=== PATIENT | male | born 1995 | race Hispanic/Latino ===

== ENCOUNTER 2025-02-23 19:52 | Inpatient (IN) | payer SELFPAY ==
[~2025-02-23] VITALS: Ht 172.7 cm; Wt 90.3 kg
[2025-02-23 20:00] VITALS: BP 110/80; PULSE 80; RESP 18; TEMP 98.4; O2SAT 100
[2025-02-23] MEDS: SODIUM CHLORIDE 0.9% 1000ML 1,000 ML IV SCH (20:27)
[2025-02-23] MEDS: DILTIAZEM HCL 5 MG/ML 5 ML VIAL IV ONE (20:27)
[2025-02-23 21:33] VITALS: PULSE 60; RESP 16; TEMP 98.3
[2025-02-23 23:09] VITALS: BP 110/80; PULSE 80; RESP 18; TEMP 98.4; O2SAT 100
[2025-02-23] MEDS: METOPROLOL SUCCINATE 25 MG TAB XL PO ONE (23:34)
[2025-02-23] MEDS: ENOXAPARIN INJ 80 MG/0.8 ML SYR SC STA (23:34)
[2025-02-23] MEDS: METOPROLOL SUCCINATE 25 MG TAB XL ONE (23:35)
[2025-02-23] MEDS: ENOXAPARIN INJ 80 MG/0.8 ML SYR SC ONE (23:36)
[2025-02-23 23:39] VITALS: BP_SYST 110; BP_SYST 141; BP_DIAS 71; BP_DIAS 80; PULSE 80; RESP 18; TEMP 98.4; O2SAT 100
[2025-02-24 01:21] VITALS: PULSE 81; RESP 16; O2SAT 98
[2025-02-24 03:35] VITALS: BP 121/64; PULSE 72; RESP 18; TEMP 97.6; O2SAT 100
[2025-02-24 05:12] LABS: BASOPHILS % 0.9 % (0.0-1.0); EOSINOPHILS % 3.0 % (0.0-6.0); LYMPHOCYTES % 36.3 % (18.0-39.1); MONOCYTES % 11.9 % (4.4-11.3); NEUTROPHILS % 47.6 % (38.7-80.0); RED CELL DISTRIBUTION WIDTH 12.5 % (11.7-14.4)
[2025-02-24 08:00] VITALS: BP 110/62; PULSE 60; RESP 19; TEMP 97.9; O2SAT 100
[2025-02-24 09:00] VITALS: BP 110/62; PULSE 60; RESP 19; TEMP 97.9; O2SAT 100
[2025-02-24 09:10] LABS: EST GLOMERULAR FILTRATION RATE 96.0 ML/MIN (>=60)
[2025-02-24 12:00] VITALS: BP 116/66; PULSE 70; RESP 18; TEMP 98; O2SAT 100
== END 2025-02-24 13:25 | disposition home or self-care (01) | DRG 310 ==
LOC: FSED 19:59 → ERHOLD 20:45 → MED/SURG 23:07
PROVIDERS: ADMIT Internal Medicine; ATTEND Internal Medicine
DX: I48.91 Unspecified atrial fibrillation (principal); F12.90 Cannabis use, unspecified, uncomplicated; F10.90 Alcohol use, unspecified, uncomplicated; Z88.0 Allergy status to penicillin; Z90.5 Acquired absence of kidney
CPT/HCPCS: 36415; 80053; 82550; 83880; 84443; 84484; 85025; 85610; 93005; 94799; 99284; J1650; J7030